=== PATIENT | male | born 1965 | race Native Hawaiian/Other Pacific Islander ===

== ENCOUNTER 2017-07-25 18:10 | Emergency (ER) | payer OTHER ==
[~2017-07-25] VITALS: Ht 182.9 cm; Wt 110.2 kg
[~2017-07-25 18:10] MED LIST: APIDRA SC; CARV12.5; CLEM2.687 PO; DEPO-TESTOS200 MG/M1; DEXL60CA4; DULO30CA PO; DULO60CA2 PO; EZET10TA13 PO; GLYB5TAB65; IMDUR30 MG; LANTUS100 MG/ML SC; LIDOCAINE; MULT VITAMI2 PO; POT CHLORIDE20 ME2 PO; PROM25TA52; VIT B12 ER1000 MCG PO
[2017-07-25 19:30] VITALS: BP 157/85; TEMP 98.1
== END 2017-07-25 19:30 | disposition home or self-care (01) ==
LOC: ED 18:10
DX: M19.071 Primary osteoarthritis, right ankle and foot (principal); R60.9 Edema, unspecified
CPT/HCPCS: 99282

== ENCOUNTER 2017-09-30 07:39 | Outpatient (CLI) | payer OTHER | END 2017-09-30 16:00 | disposition home or self-care (01) | LOC: RESP 07:39 | DX: R07.89 Other chest pain (principal) | CPT/HCPCS: 93306 ==

== ENCOUNTER 2017-10-09 08:43 | Outpatient (CLI) | payer OTHER ==
[2017-10-09 10:23] LABS: PLATELET COUNT 202 K/uL (142-355)
[2017-10-09 10:49] LABS: POTASSIUM 3.4 mmol/L (3.6-5.2)
== END 2017-10-09 19:12 | disposition home or self-care (01) ==
LOC: LABW 08:43
PROVIDERS: Nurse Practitioner
DX: R71.8 Other abnormality of red blood cells (principal); R53.83 Other fatigue; Z51.81 Encounter for therapeutic drug level monitoring; E55.9 Vitamin D deficiency, unspecified; Z79.899 Other long term (current) drug therapy; I25.10 Atherosclerotic heart disease of native coronary artery without angina pectoris; I10 Essential (primary) hypertension
CPT/HCPCS: 36415; 80053; 80061; 82043; 82306; 82570; 83036; 83735; 84436; 84443; 84481; 85027; 85610; 86376

== ENCOUNTER 2018-01-20 21:21 | Inpatient (IN) | payer OTHER ==
[~2018-01-20] VITALS: Ht 193 cm; Wt 96.4 kg
[2018-01-20 21:29] VITALS: BP 87/47; TEMP 99.9
[2018-01-20 22:57] LABS: PLATELET COUNT 203 K/uL (142-355)
[2018-01-20 23:26] LABS: POTASSIUM 3.6 mmol/L (3.6-5.2)
[2018-01-21] VITALS (17 sets, daily range): BP systolic 84–148; BP diastolic 46–102; TEMP 97.8–101.8; Ht 193 cm; Wt 96.4 kg
[2018-01-21] MEDS ORDERED: HYDR10TA47A PO (05:21)
[2018-01-21 08:09] LABS: PLATELET COUNT 187 K/uL (142-355)
[2018-01-21 08:21] LABS: POTASSIUM 3.3 mmol/L (3.6-5.2); SODIUM 127 mmol/L (136-145)
--- NOTE | 2018-01-21 15:51 | NUR ---
PT TO ICU BED3 VIA BED FROM MED SURG FLOOR.PT WITH EYES CLOSED, SKIN COOL & MOIST. PT OPENS EYES TO VERBAL STIMULI.
--- NOTE | 2018-01-21 16:15 | NUR ---
LEVOPHED DRIP STARTED AT 7.5 ML/HR,2 MCG/MIN PER DR'S ORDER.
--- NOTE | 2018-01-21 16:35 | NUR ---
HARDY VASQUES DIKE SUPERVISOR IN WITH PT REVIEWED LABS CPK & TROPONIN.
--- NOTE | 2018-01-21 17:22 | NUR ---
HARDY VASQUES BIOFUELS PROCESSING TECHNICIAN TO ICU. Pt. WILL BE TRANSFERRED TO DR. SALEH
--- NOTE | 2018-01-21 17:30 | NUR ---
SONAM CALLED ASSIGNMENT. Pt. WILL BE GOING TO CCU ROOM 125.
--- NOTE | 2018-01-21 18:15 | NUR ---
REPORT CALLED TO LUI MCGOWAN AT [facility] IN [place]. ALL PERTINENT INFORMATION WAS DISCUSSED AND ACCEPTING NURSE UNDERSTOOD ALL INFORMATION. VITAL SIGNS, LAB RESULTS, AND PATIENTS CONDITION WAS DISCUSSED AND UNDERSTOOD. PT WILL BE TRANSPORTED VIA EMS. PTS SISTER AT PTS BEDSIDE. ALL INFORMATION WAS DISCUSSED WITH FAMILY MEMBER AND SHE UNDERSTANDS REASONING FOR TRANSFER.
--- NOTE | 2018-01-21 18:44 | NUR ---
PT WITH C/O 'BUTT PAIN'# 10 LEVEL. BUTTOCKS SL PINK BUT NO BREAKDOWN,MEDICATED WITH TYLENOL 100MG PO. PT DRANK 100 ML H2O.
--- NOTE | 2018-01-21 18:51 | NUR ---
Pt. TRANSFERRED BY EMS TO [facility].
== END 2018-01-21 18:51 | disposition short-term general hospital (02) | DRG 281 ==
LOC: ED 21:21 → MED/SURG 23:50 → ICU 01-21 15:45
PROVIDERS: ADMIT Internal Medicine
DX: I21.4 Non-ST elevation (NSTEMI) myocardial infarction (principal); M62.82 Rhabdomyolysis; E87.1 Hypo-osmolality and hyponatremia; L03.116 Cellulitis of left lower limb; N17.8 Other acute kidney failure; E11.22 Type 2 diabetes mellitus with diabetic chronic kidney disease; I12.9 Hypertensive chronic kidney disease with stage 1 through stage 4 chronic kidney disease, or unspecified chronic kidney disease; N18.3 Chronic kidney disease, stage 3 (moderate); D72.828 Other elevated white blood cell count; R41.82 Altered mental status, unspecified; R60.0 Localized edema; E11.621 Type 2 diabetes mellitus with foot ulcer; E86.0 Dehydration; I95.89 Other hypotension; B95.61 Methicillin susceptible Staphylococcus aureus infection as the cause of diseases classified elsewhere
CPT/HCPCS: 36415; 36600; 80053; 80307; 81000; 82550; 82553; 82805; 83605; 84484; 85007; 85027; 87040; 87070; 87077; 87088; 87185; 87186; 87205; 93005; 94760; 96360; 96365; 96366; 96367; 99284; J1650; J1815; J2543; J3370; J3490

== ENCOUNTER 2018-01-21 19:24 | Outpatient (CLI) | payer OTHER ==
[~2018-01-21 19:24] MED LIST changes: +HYDR10TA47A PO
== END 2018-01-21 20:34 | disposition short-term general hospital (02) ==
LOC: AMB 19:24
DX: I21.4 Non-ST elevation (NSTEMI) myocardial infarction (principal); M62.82 Rhabdomyolysis; E87.1 Hypo-osmolality and hyponatremia; L03.116 Cellulitis of left lower limb; N17.8 Other acute kidney failure; E11.22 Type 2 diabetes mellitus with diabetic chronic kidney disease; I12.9 Hypertensive chronic kidney disease with stage 1 through stage 4 chronic kidney disease, or unspecified chronic kidney disease; N18.3 Chronic kidney disease, stage 3 (moderate); D72.828 Other elevated white blood cell count; R41.82 Altered mental status, unspecified; R60.0 Localized edema; E11.621 Type 2 diabetes mellitus with foot ulcer; E86.0 Dehydration; I95.89 Other hypotension; B95.61 Methicillin susceptible Staphylococcus aureus infection as the cause of diseases classified elsewhere
CPT/HCPCS: A0425; A0429